=== PATIENT | female | born 1960 | race Caucasian/White ===

== ENCOUNTER → 2020-07-20 | Outpatient (CLI) | payer OTHER ==
[~2020-07-20] MED LIST: CELEXA 20 MG TA20 M1 PO; DARVOCET-N 1001 EACH PO; KEFLEX500 MG PO; LEXAPRO20 MG PO; PHENERGAN 25 MG25 M1 PO
== END ==
LOC: CAT 08:21
PROVIDERS: ATTEND Internal Medicine
DX: Z13.6 Encounter for screening for cardiovascular disorders (principal); I25.10 Atherosclerotic heart disease of native coronary artery without angina pectoris; E78.00 Pure hypercholesterolemia, unspecified